=== PATIENT | female | born 1955 | race Caucasian/White ===

== ENCOUNTER → 2016-06-12 | Outpatient (CLI) | payer BC ==
[~2016-06-12] MED LIST: DYZUNK; MULT-506 PO; [UNRECOGNIZED DRUG - OTHER]
--- NOTE | 2016-06-13 12:41 | MAMMOGRAPHY REPORT ---
BILATERAL DIGITAL SCREENING MAMMOGRAM TOMOSYNTHESIS WITH CAD: 06/12/2016 CLINICAL HISTORY: Routine screening examination. TECHNIQUE: Breast tomosynthesis in addition to standard 2D mammography was performed. Current study was also evaluated with a Computer Aided Detection (CAD) system. COMPARISON: Comparison is made to exams dated: 06/09/2015 mammogram, 06/04/2013 mammogram, 06/07/2014 mammogram, 06/04/2012 mammogram, 05/23/2009 mammogram - [facility], and 05/20/2008. BREAST COMPOSITION: The tissue of both breasts is heterogeneously dense, which may obscure small ma sses. The breast bregma is increased in density comparing to more remote mammograms. FINDINGS: There is a possible 9 mm mass versus adjacent subcentimeter masses in the medial anterior left breast, best seen on the CC tomosynthesis images, for which additional spot compression tomosy nthesis views and possibly targeted ultrasound are recommended. No other suspicious mass, architectural distortion or cluster of suspicious microcalcifications is s een bilaterally. IMPRESSION: ACR BI-RADS CATEGORY 0: INCOMPLETE EVALUATION: NEED ADDITIONAL IMAGING EVALUATION The possible 9 mm mass versus adjacent subcentimeter masses in the medial anterior left breast need additional imaging evaluation. The patient will be called to schedule an appointment. Approximately 10% of breast cancers are not detected with mammography. A negative mammographic repor t should not delay biopsy if a clinically suggestive mass is present. Karon Obregon M.D. ay/:06/12/2016 18:42:54 Saw Superintendent: Ashley ESPARZA(Dale)(M), [facility] letter sent: Addl Imaging 0 BI-RADS Code: ACR BI-RADS Category 0: Incomplete Evaluation: Need Additional Imaging Evaluation
== END | disposition home or self-care (01) ==
LOC: C.MAMM 09:09
PROVIDERS: ATTEND Obstetrics & Gynecology
DX: Z12.31 Encounter for screening mammogram for malignant neoplasm of breast (principal); N63 Unspecified lump in breast

== ENCOUNTER → 2016-06-21 | Outpatient (CLI) | payer BC ==
--- NOTE | 2016-06-21 15:08 | MAMMOGRAPHY REPORT ---
UNILATERAL LEFT DIGITAL DIAGNOSTIC MAMMOGRAM TOMOSYNTHESIS AND TARGETED LEFT ULTRASOUND: 06/21/2016 CLINICAL HISTORY: Callback from screening mammogram for possible left breast masses. TECHNIQUE: Breast tomosynthesis in addition to standard 2D mammography was performed. Spot freya olivia left CC and MLO 2-D and tomosynthesis images were obtained. COMPARISON: Comparison is made to exams dated: 06/12/2016 mammogram, 06/09/2015 mammogram, 06/07/2014 mammogram, 06/04/2013 mammogram, 06/04/2012 mammogram, and 06/04/2012 ultrasound - [facility]. BREAST COMPOSITION: The tissue of the left breast is heterogeneously dense, which may obscure small masses. FINDINGS: The previously described asymmetries seen within the left medial anterior breast efface to a baseline appearance on the additional views, with appearance of this region similar to multiple p rior exams including the 2013 and 2012 exams. No suspicious mass or architectural distortion is not ed on the additional views. Targeted ultrasound was performed of the left medial breast in the region of the mammographic asymme tries. Sonographically normal tissue is seen, without evidence of a mass or other suspicious sonogr aphic abnormality. IMPRESSION: ACR BI-RADS CATEGORY 2: BENIGN, TARGETED ULTRASOUND ACR BI-RADS CATEGORY 2: BENIGN The left breast asymmetries efface to a baseline appearance on the additional views, without corresp onding sonographic abnormalities evident. The asymmetries are benign and compatible with normal fib roglandular tissue. There is no mammographic or targeted sonographic evidence of malignancy. A 1 ye ar screening mammogram is recommended. The patient has been verbally notified of the results. Approximately 10% of breast cancers are not detected with mammography. A negative mammographic repor t should not delay biopsy if a clinically suggestive mass is present. Layne Velazquez M.D. /:06/21/2016 14:12:57 Granite Worker: Ashley Roldan, [facility] letter sent: Normal 1/2 BI-RADS Code: ACR BI-RADS Category 2: Benign Ultrasound BI-RADS: ACR BI-RADS Category 2: Benign
== END | disposition home or self-care (01) ==
LOC: C.MAMM 13:51
PROVIDERS: ATTEND Obstetrics & Gynecology
DX: N64.89 Other specified disorders of breast (principal)

== ENCOUNTER → 2017-02-06 | Outpatient (CLI) | payer BC | END | disposition home or self-care (01) | LOC: C.PAPS 09:16 | PROVIDERS: ATTEND Obstetrics & Gynecology | DX: Z01.419 Encounter for gynecological examination (general) (routine) without abnormal findings (principal) ==

== ENCOUNTER → 2017-06-13 | Outpatient (CLI) | payer OTHER ==
--- NOTE | 2017-06-14 07:20 | MAMMOGRAPHY REPORT ---
BILATERAL DIGITAL SCREENING MAMMOGRAM TOMOSYNTHESIS WITH CAD: 06/13/2017 CLINICAL HISTORY: Routine screening. TECHNIQUE: Breast tomosynthesis in addition to standard 2D mammography was performed. Current study was also evaluated with a Computer Aided Detection (CAD) system. COMPARISON: Comparison is made to exams dated: 06/21/2016 mammogram, 06/12/2016 mammogram, 06/09/2015 ma mmogram, 06/07/2014 mammogram, 06/04/2013 mammogram, and 06/02/2012 mammogram - [facility]ter. BREAST COMPOSITION: The tissue of both breasts is heterogeneously dense, which may obscure small mas ses. FINDINGS: No suspicious masses, calcifications, or areas of architectural distortion are noted in ei ther breast. There has been no significant interval change compared to prior exams. IMPRESSION: ACR BI-RADS CATEGORY 1: NEGATIVE There is no mammographic evidence of malignancy. A 1 year screening mammogram is recommended. The pa tient will receive written notification of the results. Approximately 10% of breast cancers are not detected with mammography. A negative mammographic report should not delay biopsy if a clinically suggestive mass is present. Layne Velaqzuez M.D. /:06/13/2017 15:32:45 Gas Welder: Pilo ESPARZA(Dale)(St[place]), [facility] letter sent: Normal 1/2 BI-RADS Code: ACR BI-RADS Category 1: Negative
== END | disposition home or self-care (01) ==
LOC: C.MAMM 09:07
PROVIDERS: ATTEND Obstetrics & Gynecology
DX: Z12.31 Encounter for screening mammogram for malignant neoplasm of breast (principal)